=== PATIENT | female | born 1995 | race Caucasian/White ===

== ENCOUNTER 2016-09-11 02:02 | Inpatient (IN) | payer MEDICAID ==
[~2016-09-11] VITALS: Ht 170.2 cm; Wt 89.6 kg
[~2016-09-11 02:02] MED LIST: PREN1TAB73 PO
[2016-09-11] MEDS ORDERED: LR 1,000 ML IV PRN (07:27)
[2016-09-11] MEDS ORDERED: CALCIUM CARBONATE 500mg Chewable TAB PO PRN ×2 (07:30→18:45)
[2016-09-11] MEDS ORDERED: MAG-AL + SIM LIQUID 30 ML UDC PO PRN ×2 (07:30→18:45)
[2016-09-11] MEDS ORDERED: ACETAMINOPHEN 500 MG TABLET PO PRN ×2 (07:30→18:45)
[2016-09-11] MEDS ORDERED: LIDOCAINE 1% (10mg/ml) 2ml SDV ID PRN (07:30)
[2016-09-11] MEDS ORDERED: OXYTOCIN 30 UNIT in D5LR 500 ML SCH (07:30)
--- OUTSIDE RECORDS SUMMARY | 2016-09-11 07:30 | XMS REPORT | Continuity of Care Document ---
Author Author [facility] Address Unknown Phone Unavailable Care Team Providers Care [employer] Counselor Name Role Phone BILLYBRIDGET CAREY MD Primary Care Physician [phone] Insurance Providers Payer Name Policy Number Subscriber Name Relationship Elena Kanc[employer] [id number] Pablo Gorman 18 Self / Same As Patient Advance Directives Directive Response Recorded Date/Time Advanced Directives No 03/02/16 11:55am Chief Complaint and Reason for Visit Chief Complaint Obstetrical Complaint Reason for Visit Abdominal pain complicating Problems Active Problems Medical Problem Onset Date Status Abdominal pain complicating Unknown Acute Dizziness 12/26/2012 Acute Threatened miscarriage ~12/05/2014 Acute Medications Current Home Medications Medication Dose Units Route Directions Days/Qty Instructions Start Date Pnv No.122/Iron/Folic Acid 1 Each 1 Each ORAL Daily 12/05/14 Ondansetron 4 Mg 4 Mg ORAL As Needed 03/02/16 Docusate Sodium 100 Mg 100 Mg ORAL As Needed 03/02/16 Past Home Medications Medication Directions Ordered Status [Celexa] , 12/26/12 Discontinued Social History Query Response Start Date Stop Date Smoking Status Never smoker Hospital Discharge Instructions No hospital discharge instructions. Plan of Care Discharge Date 03/02/16 1:05pm Disposition 01 HOME OR SELF-CARE Condition at Discharge Stable Instructions/Education Provided (ED) Prescriptions See Medication Section Referrals BRIDGET CERVANTES MD - Additional Instructions/Education Some of your test results may not be complete prior to your leaving the Emergency Department. The Emergency Department is not authorized to give test results over the phone. Please contact the doctor's office listed in this packet of information for your final results. Follow up with your primary care physician or return to the Emergency Department for worsening or worrisome symptoms. * Emergency Department phone number: [phone], x [phone]* MEDICAL RECORD If you need copies of your X-rays, call [phone]. If you need copies of your medical record, including lab results, a signed authorization for release of records will be required. A telephone call for release of Health Information is not allowed. BILLING Billing can sometimes be confusing and frustrating. To help avoid confusion in the future, please take a moment to acquaint yourself with the billing parties for services. SERVICE BILLING [facility] Emergency [facility] Services [facility] Physician Services [facility] X-rays [facility] Patients will receive bills for services from the appropriate provider. If you have any questions about your [facility] bill, our staff will be happy to assist you. Please call [phone], and ask for the billing department. THANK YOU for choosing [facility] as your emergency care provider! Care Plan and Goals ~~Discharge Care Plan~~ Problem: problem Goal: Decreased pain. No vaginal bleeding/discharge. Instructions: Take medication(s) as prescribed. Follow home care instructions as directed. Follow up with your Nursing Home Administrator as directed. Return if bleeding increases to more than one super pad per hour. Call your Nursing Home Administrator if cramping or abdominal pain is uncontrolled by pain medication. Functional Status No functional status results. Allergies, Adverse Reactions, Alerts Allergen Type Severity Reaction Status Last Updated No Known Drug Intolerances Allergy Active 12/26/12 Immunizations No immunization records. Vital Signs Acute Vital Signs Vital Response Date/Time Temperature (Fahrenheit) 98.7 03/02/2016 12:57pm Pulse 93 bpm 03/02/2016 12:57pm Respirations 22 03/02/2016 12:57pm Height 5 ft 7 in Weight 171 lb Body Mass Index 26.0 kg/m^2 Results Laboratory Results Test Name Result Units Flags Reference Collection Date/Time Result Date/ Time Comments Volume Urine Centrifuged 12 mL 03/02/2016 12:pm 03/02/2016 12: 40pm Urine Collection Type CLEAN CATCH 03/02/2016 12:03/02/2016 12: 40pm Urine Color Yellow 03/02/2016 12:03/02/2016 12:39pm Urine Clarity Cloudy 03/02/2016 12:03/02/2016 12:39pm Urine pH 8.0 5.0 - 8.0 03/02/2016 12:03/02/2016 12:39pm Urine Specific [place] 1.020 1.005-1.030 03/02/2016 12:2015 12:39pm Urine Protein Negative Negative 03/02/2016 12:03/02/2016 12: 39pm Urine Glucose (UA) Negative Negative 03/02/2016 12:03/02/2016 12 :39pm Urine RBC (Auto) Trace-intact H Negative 03/02/2016 12:2015 12:39pm Urine Ketones Trace H Negative 03/02/2016 12:03/02/2016 12:39pm Urine Nitrite Negative Negative 03/02/2016 12:03/02/2016 12: 39pm Urine Bilirubin Negative Negative 03/02/2016 12:03/02/2016 12: 39pm Urine Urobilinogen 1.0 mg/dL 0.2-1.0 03/02/2016 12:03/02/2016 12: 39pm Urine Leukocyte Esterase Negative Negative 03/02/2016 12:2015 12:39pm Urine RBC 0-2 /HPF 03/02/2016 12:03/02/2016 12:40pm Urine WBC None Seen /HPF 03/02/2016 12:03/02/2016 12:40pm Urine Bacteria 2+ /HPF H 03/02/2016 12:03/02/2016 12:40pm Urine Squamous Epithelial Cells 10-20 /LPF 03/02/2016 12:26pm 2015 12:40pm Urine Mucus 2+ H 03/02/2016 12:26pm 03/02/2016 12:40pm Urine Amorphous Sediment 1+ /HPF H 03/02/2016 12:26pm 03/02/2016 12: 40pm Procedures No known history of procedures. Encounters Encounter Location Arrival/Admit Date Discharge/Depart Date Attending Provider Departed Emergency Room [facility] 03/02/16 11:57am 03/02/16 1:05pm JAZZY LALA MD Recent Diagnosis
[2016-09-11 08:18] LABS: HCT - HEMATOCRIT 30.9 % (36-46); MEAN CORPUSCULAR HGB 28.6 UUG (26-34); MEAN CORPUSCULAR HGB CONC(MCHC 32.4 GM/DL (31-37); MEAN CORPUSCULAR VOLUME 88.3 UM3 (80-100); MEAN PLATELET VOLUME 9.9 UM3 (9.4-12.4); RED BLOOD COUNT 3.5 M/MM3 (4.00-5.20); WBC - WHITE BLOOD COUNT 13.9 T/MM3 (4.5-11.0)
[2016-09-11 08:32] VITALS: BP 112/63; PULSE 121; RESP 16; TEMP 97.8; O2SAT 98
--- NOTE | 2016-09-11 11:16 | ANESOB ---
Epidural/ Date/Time DATE: 09/11/16 TIME: 11:14 Preop Diagnosis Procedure: Labor Epidural Plan: Epidural Height: 5 ' 7.00 " Weight: 89.600 kg BMI: kg/m2 P:1 Medications & Allergies Inpatient Medications Current Medications Medications (Trade) Dose Ordered Sig/Richard Start Time Stop Time Status Last Admin Dose Admin Dextrose/Lactated Ringer's 1,000 ml @ 0 mls/hr Q0M PRN 09/11/16 08:00 Oxytocin/Dextrose/ Lactated Ringer's (Pitocin/D5lr) 503 ml @ 0 mls/hr Q0M 09/11/16 07:30 Lidocaine HCl 0.2 mg 0.2 mg PRN PRN 09/11/16 07:30 Lactated Ringer's (Lactated Ringers) 1,000 ml @ 0 mls/hr Q0M PRN 09/11/16 07:27 Acetaminophen (Tylenol Extra Strength) 1-2 TABS = 500-1,000 MG Q4H PRN 09/11/16 07:30 Al Hydroxide/Mg Hydroxide (Maalox) 30 ml Q4H PRN 09/11/16 07:30 Calcium Carbonate (TUMS Regular Strength) 1-2 TABS Q2H PRN 09/11/16 07:30 Pnv95/Ferrous Fumarate/FA ( Tablet) 1 Each Tablet, 1 TAB PO DAILY, ( Reported) Last Taken: on 09/10/16 0800 Coded Allergies: No Known Allergies (Unverified , 07/24/15) Medical/Surgical History Anesthesia PMH: Reports: Asthma (CHILDHOOD- none currently), Denies: *Diabetes , *Hypertension, Anesthesia Reactions, Bld Transfusion Reaction, CHF, Malignant Hyperthermia, Seizures Smoking Status: Never smoker Does patient use chewing tobac: No Substance Use Type: does not use Alcohol Intake: none Anesthesia Adverse Reactions: FOUND none Family Hx of Anesthesia Advers: none Hx of Motion Sickness: No Pertinent Findings Laboratory Tests 09/11/16 07:55 Physical Exam Respiratory: Lungs clear Cardiovascular: Regular rate, rhythm Airway Assessment Mallampati Score: II TMD: 3 Fingerbreadths Neck Extension: Good Overall Assessment: May Be Diff Mask Vent., May Be Diff Intubation ASA: 2 Discussion Discussed risks/options/alternatives of anesthesia. Patient consents. Nursing pain assessment noted. Present for Discussion: Present: Spouse Attestation Statement Prior to the delivery of any anesthetic medication, I examined the patient, developed the plan, obtained the patient's consent and discussed the risk and benefits of the procedure with the patient/guardian. If the note happens to be signed after anesthesia start time, it is only due to providing efficient care of the patient and documenting at a time when the computer is available. SALO SIMON CRNA September 11, 2016 11:16
[2016-09-11] MEDS ORDERED: ROPIVACAINE 1% 200 MG, SUFENTANIL 50 MCG in NORMAL SALINE 80 ML EPI PRN (13:45)
[2016-09-11] MEDS ORDERED: NALOXONE 0.4mg/ml INJECTION IV PRN (13:45)
[2016-09-11] MEDS ORDERED: ONDANSETRON 4mg/2ml INJECTION IV PRN (13:45)
[2016-09-11] MEDS ORDERED: DiphenhydrAMINE 50 MG/ML INJECTION IV PRN (13:45)
[2016-09-11] MEDS ORDERED: EPHEDRINE SULFATE 50mg/ml INJECTION IV ONE (14:15)
[2016-09-11] MEDS: D5LR 1,000 ML IV PRN ×2 (14:18→17:16)
[2016-09-11] MEDS ORDERED: OXYTOCIN 30 UNIT in D5W 500 ML IV ONE (18:38)
[2016-09-11] MEDS ORDERED: HYDROCORTISONE 2.5% CREAM 30 GM RECTALLY PRN (18:45)
[2016-09-11] MEDS ORDERED: PHENYLEPHRINE RECTAL SUPPOSITORY RECTALLY PRN (18:45)
[2016-09-11] MEDS ORDERED: MILK OF MAGNESIA 30 ML SUSP PO PRN (18:45)
[2016-09-11] MEDS ORDERED: DiphenhydrAMINE 25 MG CAPSULE PO PRN (18:45)
[2016-09-11] MEDS: IBUPROFEN 800 MG TABLET PO SCH (19:52)
--- NOTE | 2016-09-11 19:57 | LDNF ---
DATE OF DELIVERY 09/11/2016 SUMMARY OF DELIVERY Ms. Gage progressed very well in first stage of labor. She began to push at the complete and +2 presentation. She pushed for two contractions delivering the head in the OA presentation. Baby was bulb suctioned on the perineum. There was no evidence of nuchal cord. With a further push, she delivered the baby in total. Baby was then further bulb suctioned and placed on the mother's abdomen for care by the nurses. After just over 2 minutes, the cord was doubly clamped and cut. This is a liveborn female with Apgars of 9, 9, 9, weighing 8 pounds 1.4 ounces. After a few moments, the placenta delivered spontaneously intact. It had a normal configuration and a normal-appearing three-vessel cord. There was a right labial laceration that was repaired with a subcuticular style 3-0 Monocryl. Total blood loss was approximately 300 mL. At the time of this dictation, mother and baby are doing well. NORMA
[2016-09-11] MEDS ORDERED: MEASLES-MUMPS-RUBELLA VACCINE 0.5ml INJECTION SQ ONE (20:00)
[2016-09-11 22:31] VITALS: BP 126/59; PULSE 81; RESP 16; TEMP 97.8
--- NOTE | 2016-09-11 22:36 | NUR ---
Epidural Epidural catheter removed without complications, tip intact, no S/S of infection noted. Area cleansed with alcohol, betadine and covered with a bandaid. Pt. educated about S/S of infection and to call doctor with concerns.
--- NOTE | 2016-09-11 23:45 | NUR ---
Chart Check 24 hour chart check completed
--- NOTE | 2016-09-11 23:47 | NUR ---
SHIFT SUMMARY: Beginning of shift, PT being induced due to logistics. Pt's labor pains controlled with epidural. Pt transitioned from 5.5cm to complete. Pt labored down and pushed with 2cx. At 181, viable female born via vaginal delivery. Baby placed skin to skin with mother and Dr Melvin cut the cord. 1821 spontaneous delivery of placenta. VSS throughout labor and recovery. Fundus firm at 1 below umbilicus, light to moderate lochia noted. Pt received pitocin after delivery and now IV is SL. Pt consumed and tolerated general diet and PO fluids. Epidural cath removed, no complications. Pt states left thigh numb and tingling, RN and Natalie ARCHER Tech assist pt to BRP. PT ambulates w/o complications. Pt voids 800ml van colored urine and passes a 1/2dollar sized clot. RN discusses and provides pericare. Ice pack, TUCKS and Benzocaine to swollen labia. RN assisted pt back to bed, linens changed by RN and Natalie ARCHER Tech. Pt instructed to call RN when needing BRP, pt verbalizes understanding. Pt baby, RN assist with positioning and latch at breast. Pt bonding appropriately with baby. Isak present and attentive to pt and baby. MMR provided SQ in pt's LL abdm. Baby's blood type O-, pt will not need Rhogam.
[2016-09-12] MEDS: HYDROCODONE/APAP 5 mg/325 mg TABLET PO PRN ×2 (03:15→17:14)
--- NOTE | 2016-09-12 03:56 | NUR ---
Status RN at bedside to reassess pain and offer Motrin. Pt sleeping with baby at bedside in [facility].
[2016-09-12 06:27] VITALS: BP 132/59; PULSE 78; RESP 18; TEMP 97.7; O2SAT 98
[2016-09-12] MEDS: IBUPROFEN 800 MG TABLET PO SCH ×2 (08:34→16:07)
[2016-09-12] MEDS ORDERED: DOCUSATE CALCIUM 240 MG CAPSULE PO SCH (09:00)
--- NOTE | 2016-09-12 09:40 | PNPDOC ---
Progress Note PPD1 Rubella: Not Immune GBS: Not Done/No Results Blood Type:O neg Subjective 09/12/16 Lochia: Minimal Pain: Controlled Voiding: Voiding Nausea and Vomiting: No Nausea/Vomiting Objective Vital Signs Date Time Temp Pulse Resp B/P Pulse Ox O2 Delivery O2 Flow Rate FiO2 09/12/16 06:27 97.7 78 18 132/59 98 Room Air Urine Output: Good Abdomen: Fundus Firm, Non-tender Extremities: Non-tender Edema: None Assessment SP, Plan Routine Care She'd like dismissal this evening. RASTA DAVENPORT MD September 12, 2016 09:40
[2016-09-12] MEDS ORDERED: IBUP-1547 PO (09:41)
[2016-09-12] MEDS ORDERED: DOCU240C40 PO (09:41)
[2016-09-12] MEDS ORDERED: HYDR-4246 PO (09:41)
[2016-09-12 13:30] VITALS: BP 133/75; PULSE 70; RESP 18; TEMP 98
--- NOTE | 2016-09-12 13:48 | NUR ---
Shift Summary Pt providing cares for self and baby in room. Vs stable and wnl. Ambulating in hallways. Tolerated shower. Pain controlled with PO medications. Pt plans to dismiss to home this evening. RX given to pt.
--- NOTE | 2016-09-12 15:04 | ANESPO ---
Post-Op Note Date 09/12/16 Time: 15:04 Status Pt Participated in Evaluation: Pt participated in person Vital Signs Date Time Temp Pulse Resp B/P Pulse Ox O2 Delivery O2 Flow Rate FiO2 09/12/16 13:30 98.0 70 18 133/75 Room Air 09/12/16 06:27 98 Respiratory Function: Airway patent Cardiovascular Function: Regular pulse Mental Status: Alert/oriented Pain Level Intensity: 2 Hydration: Taking po fluids Complications during Recovery None apparent Follow-Up Instructions Instructions Per Surgeon Additional Information full sensation and motor returned. no complications SALO SIMON CRNA September 12, 2016 15:04
[2016-09-12 17:12] VITALS: BP 118/72; PULSE 81; RESP 18; TEMP 98.1; O2SAT 99
== END 2016-09-12 19:45 | disposition home or self-care (01) | DRG 775 ==
LOC: MC 07:22
PROVIDERS: ADMIT Obstetrics & Gynecology; ATTEND Obstetrics & Gynecology
PROC: 10E0XZZ Delivery of Products of Conception, External Approach (ICD-10-PCS; principal; 2016-09-11)
PROC: 0UQMXZZ Repair Vulva, External Approach (ICD-10-PCS; 2016-09-11)
PROC: 10907ZC Drainage of Amniotic Fluid, Therapeutic from Products of Conception, Via Natural or Artificial Opening (ICD-10-PCS; 2016-09-11)
PROC: 3E033VJ Introduction of Other Hormone into Peripheral Vein, Percutaneous Approach (ICD-10-PCS; 2016-09-11)
DX: O70.0 First degree perineal laceration during delivery (principal); Z3A.39 39 weeks gestation of pregnancy; Z37.0 Single live birth
CPT/HCPCS: 36415; 85027; 90707